=== PATIENT | female | born 1955 | race Two or more races ===

== ENCOUNTER 2016-12-28 08:38 | Inpatient (IN) | payer OTHER ==
--- NOTE | 2016-12-28 07:56 | HP ---
Admitting History and Physical - Admission Chief Complaint: right knee osteoarthritis x years History of Present Illness: 61 year old female presents in regard to her right knee. Longstanding history of right knee osteoarthritis. Patient complains of pain, limited ROM, difficulty ambulating and difficulty with ADLs. Patient has failed conservative treatment including PO medication, activity modification, injections and exercise program. Patient would like to proceed with a right total knee arthroplasty. History Source: Patient - Past Medical History ...: No ENT: Yes: Other - Past Surgical History Additional Past Surgical History: See written H&P - Smoking History Smoking history: Never smoked Have you smoked in the past 12 months: No - Alcohol/Substance Use Hx Alcohol Use: Yes (RARELY) Home Medications - Allergies Allergies/Adverse Reactions: Allergies Allergy/AdvReac Type Severity Reaction Status Date / Time No Known Drug Allergies Allergy Verified 12/16/16 12:24 - Home Medications Home Medications: Ambulatory Orders Bimatoprost [Lumigan] 1 drop OU HS 12/16/16 Multivitamin/Iron/Folic Acid [Centrum Adults Tablet] 1 each PO DAILY 12/16/16 Naproxen Sodium [Aleve] 220 mg PO BID 12/16/16 Timolol [Betimol] 1 drop OU DAILY 12/16/16 Tramadol HCl [Ultram] 50 mg PO BID PRN 12/16/16 Review of Systems - Review of Systems Musculoskeletal: reports: Crepitus (Right knee), Decreased ROM (Right knee), Joint Pain (Right knee), Joint Swelling (Right knee) Physical Examination Constitutional: Yes: Well Nourished, No Distress Eyes: Yes: Conjunctiva Clear HENT: Yes: Atraumatic, Normocephalic Neck: Yes: Supple Cardiovascular: Yes: Regular Rate and Rhythm Respiratory: Yes: Regular Gastrointestinal: Yes: Soft ...Rectal Exam: Yes: Deferred Musculoskeletal: Yes: Joint Stiffness (Right knee), Joint Swelling (Right knee) Assessment/Plan 61 year old female with longstanding right knee osteoarthritis. Patient continues to complain of pain, limited ROM, difficulty ambulating and difficulty with ADLs. Patient has failed all conservative treatment measures. Proceed with right total knee arthroplasty.
[2016-12-28] MEDS ORDERED: TRANEXAMIC ACID 1000 MG/10 ML VIAL IVPUSH ONE (08:51)
[2016-12-28] MEDS ORDERED: CEFAZOLIN 2 GM in DEXTROSE 5%-WATER - 50 ML IVPB ONE (08:51)
[2016-12-28] MEDS ORDERED: ROPIVICAINE 0.2%/MORPH PF/KETOROLAC - 51ML DISP.SYRINGE IA ONE (08:51)
[2016-12-28] MEDS ORDERED: ceFAZolin SODIUM 1 GM VIAL ONE ×2 (09:28→11:21)
[2016-12-28] MEDS ORDERED: VANCOMYCIN 1,000 MG VIAL (RESTRICTED TO ID ONLY) ONE (09:28)
[2016-12-28] MEDS: CELECOXIB 200 MG CAPSULE PO ONE ×2 (09:40→16:40)
[2016-12-28] MEDS: PANTOPRAZOLE 40 MG TABLET (FP) PO ONE ×2 (09:40→16:40)
[2016-12-28] MEDS: GABAPENTIN 300 MG CAPSULE (FP) PO ONE ×2 (09:40→16:41)
[2016-12-28] MEDS: oxyCODONE HCL 10 MG SUSTAINED ACTING TABLET PO ONE ×2 (09:40→16:41)
[2016-12-28 10:02] VITALS: BMI 37.1
[2016-12-28] MEDS ORDERED: DEXAMETHASONE SOD PHOSPHATE/PF 10 MG/ML SDV ONE (10:04)
[2016-12-28] MEDS ORDERED: MIDAZOLAM HCL 2 MG/2 ML SINGLE DOSE VIAL ONE (10:05)
[2016-12-28] MEDS ORDERED: SODIUM CHLORIDE 0.9% P/F 10 ML VIAL IJ ONE (10:05)
[2016-12-28] MEDS ORDERED: ROPIVACAINE HCL 0.5% 30ML VIAL ONE (10:05)
[2016-12-28] MEDS ORDERED: PROPOFOL 20 ML ONE ×3 (10:48)
[2016-12-28] MEDS ORDERED: BUPIVACAINE HCL/PF 0.5% (5MG/ML) 10 ML VIAL ONE (10:49)
[2016-12-28] MEDS ORDERED: DEXAMETHASONE SOD PHOSPHATE 4 MG/1 ML VIAL ONE (11:21)
[2016-12-28] MEDS ORDERED: TRANEXAMIC ACID 1000 MG/10 ML VIAL ONE (11:21)
[2016-12-28] MEDS ORDERED: ONDANSETRON 4 MG/2 ML VIAL ONE (11:21)
[2016-12-28] MEDS ORDERED: ePHEDrine SULFATE 50 MG/1 ML AMPULE ONE (11:34)
[2016-12-28] MEDS ORDERED: oxyCODONE HCL 5 MG TABLET PO PRN (12:30)
[2016-12-28] MEDS ORDERED: METOCLOPRAMIDE HCL INJECTION 10 MG/2 ML VIAL IVPB PRN (12:32)
[2016-12-28] MEDS ORDERED: KETOROLAC TROMETHAMINE 30 MG/1 ML VIAL ONE (14:19)
[2016-12-28] MEDS ORDERED: traMADol HCL 50 MG TABLET ONE (14:19)
[2016-12-28] MEDS: ACETAMINOPHEN 1000 MG/100 ML VIAL (NON FORMULARY) IVPB ONE ×2 (14:30→16:42)
[2016-12-28] MEDS ORDERED: MAG HYDROX/AL HYDROX/SIMETH 30 ML UNIT-DOSE CUP PO PRN (14:59)
[2016-12-28] MEDS ORDERED: MAGNESIUM HYDROX 2400MG/30ML ORAL SUSPENSION 30 ML CUP PO PRN (14:59)
[2016-12-28] MEDS ORDERED: ONDANSETRON 4 MG/2 ML VIAL IVPB PRN (14:59)
[2016-12-28] MEDS ORDERED: LACTATED RINGERS SOLUTION 1,000 ML IV SCH (15:00)
[2016-12-28] MEDS ORDERED: ACETAMINOPHEN 1000 MG/100 ML VIAL (NON FORMULARY) IVPB ONE (15:03)
[2016-12-28] MEDS: KETOROLAC TROMETHAMINE 30 MG/1 ML VIAL IVPUSH SCH ×3 (15:10→21:55)
[2016-12-28] MEDS: traMADol HCL 50 MG TABLET PO SCH ×3 (15:20→21:52)
[2016-12-28] MEDS: LACTATED RINGERS SOLUTION 1,000 ML IV SCH (16:42)
[2016-12-28] MEDS: CEFAZOLIN 2 GM/D5W 50 ML IVPB SCH (17:36)
[2016-12-28] MEDS ORDERED: PT OWN MED DRAWER 7, Y5N ONE (21:30)
[2016-12-28] MEDS: ACETAMINOPHEN 325 MG TABLET (FP) PO SCH (21:50)
[2016-12-28] MEDS: CELECOXIB 200 MG CAPSULE PO SCH (21:50)
[2016-12-28] MEDS: GABAPENTIN 300 MG CAPSULE (FP) PO SCH ×2 (21:50→21:53)
[2016-12-28] MEDS: ASCORBIC ACID 500 MG TABLET (FP) PO SCH (21:51)
[2016-12-28] MEDS: oxyCODONE HCL 5 MG TABLET PO PRN (21:51)
[2016-12-28] MEDS: SENNOSIDES/DOCUSATE COMBO (SENNA PLUS) TABLET (UD) PO SCH (21:52)
[2016-12-28] MEDS: LATANOPROST 0.005% OPHTH SOLN 2.5ML BOTTLE OU SCH (21:53)
[2016-12-28] MEDS ORDERED: PATIENT'S OWN MEDICATION (NON-FORMULARY) (Bimatoprost [Lumigan] 1 DROP) OU SCH (22:00)
[2016-12-29] MEDS: CEFAZOLIN 2 GM/D5W 50 ML IVPB SCH (01:38)
[2016-12-29] MEDS: KETOROLAC TROMETHAMINE 30 MG/1 ML VIAL IVPUSH SCH ×2 (03:44→08:10)
[2016-12-29] MEDS: oxyCODONE HCL 5 MG TABLET PO PRN ×3 (03:45→21:20)
[2016-12-29] MEDS: ACETAMINOPHEN 325 MG TABLET (FP) PO SCH ×4 (03:45→21:16)
[2016-12-29] MEDS: traMADol HCL 50 MG TABLET PO SCH ×4 (03:46→21:17)
[2016-12-29] MEDS: ASPIRIN 325 MG TABLET PO SCH (08:10)
[2016-12-29 08:14] LABS: MCH 20.2 pg (25.7-33.7); MCHC 31.3 g/dl (32.0-36.0); MEAN CELL VOLUME 64.5 fl (80-96); MEAN PLT VOLUME 8.2 fl (7.5-11.1); PLATELET COUNT 226 K/MM3 (134-434); RDW 14.5 % (11.6-15.6); WHITE BLOOD COUNT 9.5 K/mm3 (4.0-10.8)
[2016-12-29 08:18] LABS: HYPOCHROMIA 1+; MICROCYTOSIS 2+; PLATELET ESTIMATE ADEQUATE (NORMAL)
[2016-12-29 08:34] LABS: ANION GAP 7 (8-16); CALCIUM 8.8 mg/dl (8.4-10.2); CO2 27 mmol/L (22-28); CREATININE 0.5 mg/dl (0.6-1.3); GLUCOSE,RANDOM 147 mg/dl (74-106)
[2016-12-29] MEDS: MULTIVITAMINS (DAILY MVI) TABLET (FP) PO SCH (09:19)
[2016-12-29] MEDS: GABAPENTIN 300 MG CAPSULE (FP) PO SCH ×4 (09:19→21:18)
[2016-12-29] MEDS: PANTOPRAZOLE 40 MG TABLET (FP) PO SCH (09:19)
[2016-12-29] MEDS: CELECOXIB 200 MG CAPSULE PO SCH ×2 (09:19→21:16)
[2016-12-29] MEDS: ASCORBIC ACID 500 MG TABLET (FP) PO SCH ×2 (09:19→21:17)
[2016-12-29] MEDS: SENNOSIDES/DOCUSATE COMBO (SENNA PLUS) TABLET (UD) PO SCH ×2 (09:20→21:18)
[2016-12-29] MEDS ORDERED: PATIENT'S OWN MEDICATION (NON-FORMULARY) (Timolol [Betimol] 1 DROP) OU SCH (10:00)
--- NOTE | 2016-12-29 10:15 | SPEC ---
DATE OF OPERATION: 12/28/2016 PREOPERATIVE DIAGNOSIS: Right knee osteoarthritis. POSTOPERATIVE DIAGNOSIS: Right knee osteoarthritis. PROCEDURE: Right total knee replacement. ATTENDING: Prince Prakash MD DISABILITY COUNSELOR: SHELBY Tan ANESTHESIA: Spinal plus sedation. ESTIMATED BLOOD LOSS: 150 mL. COMPLICATIONS: None. SPECIMENS: Resected bone was sent for pathology analysis. DISPOSITION: The patient was transferred to the PACU in stable condition. IMPLANTS USED: [place] Triathlon size 4 femoral component, Liv Triathlon size 3 tibial component, 11-mm total stabilized polyethylene component, 29-mm patellar component. INDICATIONS: This is a 61-year-old female who presented to the office complaining of severe right knee pain. She was seen and examined by Dr. Prakash and diagnosed with severe right knee osteoarthritis. Her x-rays showed Kellgren and Danial grade 4 [id number] medial compartment osteoarthritis. She did have tricompartmental arthritic changes and had tried multiple nonoperative modalities including medications, injections, and physical therapy without relief. She was subsequently indicated for right total knee replacement. The risks, benefits, and alternatives to the procedure were explained to the patient in great detail, and she elected to proceed with the surgery. DESCRIPTION OF PROCEDURE: On the day of surgery, the patient was taken to the OR and placed supine on the OR table. Spinal anesthesia was administered by the anesthesiologist. The patient was then positioned supine on the table and all bony prominences were padded. A nonsterile tourniquet was placed on the proximal thigh. The knee was then prepped and draped in the usual sterile fashion and intravenous antibiotics were given for infection prophylaxis. A surgical time-out was then performed with the team, and the patients identity, procedure, side, availability of implants, and the administration of antibiotics was confirmed. The leg was then elevated and exsanguinated, and the tourniquet was inflated. With the knee flexed, a midline incision was made and carried down through the subcutaneous fat to the underlying retinaculum. A medial parapatellar arthrotomy was performed. This was followed by a subperiosteal dissection of the tissue off the proximal, medial tibia. A portion of fat pad was removed from under the patellar tendon, and a small portion of fat was excised off the distal supracondylar femur. The knee was then flexed further and the anterior horn of the lateral meniscus was released from the midline. Next, the anterior and posterior cruciate ligaments were transected. Osteophytes were removed from both the femur and tibia. Grade 4 changes were noted diffusely throughout the knee. Hohmann retractors were then placed around the distal femur. The starting drill was used to enter the intramedullary canal. The starting point had been chosen by checking the radiographs and anatomy. Proper alignment and intramedullary placement was then confirmed by placing the long narrow eloise into the femur. Next, the distal femoral cutting guide was adjusted to 6 degrees of valgus and pinned to the femur. The bone resection was assessed using an carmen-wing. An approximately 10mm distal cut was made and the cut pieces measured. Once this was complete, the sizing guide was used to determine which size femoral component should be used. Next, the appropriately sized 4-in-1 cutting block was then placed at the correct amount of external rotation and the carmen wing was used to assure that there would be no notching of the anterior cortex of the femur. Once this was done, Hohmann retractors were used to protect the medial and lateral collateral ligaments, and all appropriate bone cuts were made. Attention was then turned to the tibia. Hohmann retractors were used to translate the tibia anteriorly and protect the collateral ligaments. The medial and lateral menisci were removed. The extramedullary tibial alignment guide was then placed and adjusted for rotation, varus/valgus, and slope. The height of the cutting block was adjusted to the level of the desired bone resection and then pinned in place. The proximal tibia was then cut with a saw and the bone was removed and measured. Once this was completed, trial components were placed and the knee was taken through a full range of motion. Soft tissue balance was assessed in both flexion and extension and found to be appropriate. The knee was stable throughout the full range of motion. The knee was then put into extension and the patella everted. The synovium around the patella was circumscribed with electrocautery. A caliper was used to measure the patellar thickness and a saw was then used to resect the patella at the chondro-osseous junction. The cut surface was then sized and drilled for the appropriate patellar button, with care taken to medialize it. A trial patella was then placed and the knee was again taken through a full range of motion. The knee was found to have both good balance and good patellar tracking. All of the components were removed except the tibial base plate. The appropriate instrumentation was used to drill and punch the proximal tibia for the keel of the final component. All bony surfaces were then cleaned with pulsatile lavage and dried. Bone cement was then prepared on the back table, and final components were cemented in place in the usual fashion. Extruded cement was removed. The polyethylene trial was placed, the knee was put into extension, and axial pressure was applied for compression while the cement hardened. The patellar button was similarly cemented into place. Once the cement had hardened, the knee was taken through a full range of motion to assess stability, balance, and patellar tracking. This was found to be optimal and the trial polyethylene was exchanged for the appropriately sized real implant. The wound was then thoroughly irrigated with normal saline. No. 1 Polysorb and 0 VLoc 180 barbed sutures were used to close the arthrotomy. No. 1 Polysorb and 2-0 Polysorb sutures were used in the subcutaneous tissues. The skin was closed using both 3-0 VLoc 90 suture in a running subcuticular fashion and SwiftSet skin adhesive. Once this was completed a sterile Aquacel dressing and compressive Dano-wrap was applied. The tourniquet was then deflated and the patient was awakened and taken to the PACU in stable condition. ADDENDUM: After final components were placed, a 3-minute dilute Betadine lavage was performed according to the [facility] protocol. Following this, the wound was again thoroughly irrigated with normal saline via pulsatile lavage, and then, wound closure was begun. Lor [id number]
[2016-12-29] MEDS: LACTATED RINGERS SOLUTION 1,000 ML IV SCH (14:35)
[2016-12-29] MEDS ORDERED: PT OWN MED DRAWER 7, Y5N ONE (21:06)
[2016-12-29] MEDS: LATANOPROST 0.005% OPHTH SOLN 2.5ML BOTTLE OU SCH (21:18)
[2016-12-30] MEDS: oxyCODONE HCL 5 MG TABLET PO PRN (04:13)
[2016-12-30] MEDS: traMADol HCL 50 MG TABLET PO SCH ×2 (04:13→10:16)
[2016-12-30] MEDS: ACETAMINOPHEN 325 MG TABLET (FP) PO SCH ×2 (04:13→09:35)
[2016-12-30 08:13] LABS: MCHC 30.6 g/dl (32.0-36.0); MEAN CELL VOLUME 64.5 fl (80-96); MEAN PLT VOLUME 8.2 fl (7.5-11.1); PLATELET COUNT 225 K/MM3 (134-434); RDW 14.3 % (11.6-15.6); WHITE BLOOD COUNT 7.9 K/mm3 (4.0-10.8)
--- NOTE | 2016-12-30 08:13 | PN ---
Progress Note (short form) - Note Progress Note: Pt seen and examined yesterday evening. Doing well. AVSS Selected Entries 12/29/16 12/30/16 22:00 05:45 Temperature 97.6 F 98.7 F Pulse Rate 68 65 Respiratory 18 20 Rate Blood Pressure 113/58 105/63 O2 Sat by Pulse 98 100 Oximetry (%) Oxygen Delivery Room Air Room Air Method Laboratory Tests 12/29/16 12/29/16 07:35 07:35 WBC 9.5 Hgb 9.4 L Hct 30.0 L Plt Count 226 Sodium 136 Potassium 4.5 Chloride 102 Carbon Dioxide 27 Anion Gap 7 L BUN 13 Creatinine 0.5 L Random Glucose 147 H Calcium 8.8 Gen: NAD RLE: c/d/i, NVID A/P s/p R TKA 1. PT/OOB 2. D/C home today - f/u in office in 10-14 days
--- NOTE | 2016-12-30 08:14 | DS ---
Physical Examination Vital Signs: Vital Signs Temperature 98.7 F 12/30/16 05:45 Pulse Rate 65 12/30/16 05:45 Respiratory Rate 20 12/30/16 05:45 Blood Pressure 105/63 12/30/16 05:45 O2 Sat by Pulse Oximetry (%) 100 12/30/16 05:45 Discharge Summary Reason For Visit: OSTEOARTHRITIS RIGHT KNEE Current Active Problems Osteoarthritis of right knee (Acute) Procedures: Principal: right TKA Hospital Course: Admitted for elective surgery. Procedure performed without complications. Pt received postoperative antibiotic prophylaxis and DVT ppx. Ambulated with physical therapy. Stable for discharge home with outpatient followup. Condition: Stable - Instructions Diet, Activity, Other Instructions: Dr. Prakash - Knee Replacement Instructions Keep the Aquacel dressing on until removed by Dr. Prakash in 10-14 days - it is antibacterial and waterproof and you can shower with it on. Call the office for a follow-up appointment with Dr. Prakash in 10-14 days. Take one Aspirin 325mg daily for 6 weeks to prevent blood clots in your legs. Take one Pantoprazole 40mg daily for 6 weeks to protect against heartburn and ulcers. Take Celebrex 200mg twice daily for 30 days to reduce swelling and inflammation. Take a multivitamin, extra vitamin C supplement, and stool softener daily. For pain: *Mild pain (1-3/10): Take 1 Tramadol tablet every 4 hours as needed. Moderate pain (4-6/10): Take 1 Tramadol tablet and 1 Percocet tablet every 4 hours as needed. Severe pain (7-10/10): Take 1 Tramadol tablet and 2 Percocet tablets every 4 hours as needed. Activity: You can put as much weight on the operative leg as you want. Right after you get home, there will be a physical therapist coming to your house to help you walk around and bend/straighten your knee. After your follow-up appointment, you will be sent for more intensive outpatient physical therapy which will include machines and equipment that the home therapist cannot bring to your house. Always use a walker or cane for balance and to prevent falls. Disposition: VNS/HOME HEALTH CARE - Home Medications Comprehensive Discharge Medication List: Ambulatory Orders Bimatoprost [Lumigan] 1 drop OU HS 12/16/16 Multivitamin/Iron/Folic Acid [Centrum Adults Tablet] 1 each PO DAILY 12/16/16 Timolol [Betimol] 1 drop OU DAILY 12/16/16 Ascorbic Acid [Vitamin C -] 500 mg PO BID tablet 12/30/16 Aspirin [ASA -] 325 mg PO DAILY@0800 tablet 12/30/16 Celecoxib [CeleBREX -] 200 mg PO BID #60 tab 12/30/16 Multivitamins [Multivit ([facility])] 1 tab PO DAILY tab 12/30/16 Oxycodone HCl/Acetaminophen [Percocet 5-325 mg Tablet] 1 - 2 tab PO Q4H PRN #60 tablet MDD 8 12/30/16 Pantoprazole Sodium [Protonix -] 40 mg PO DAILY #40 tab 12/30/16 Sennosides/Docusate Sodium [Pericolace -] 2 tablet PO BID tablet 12/30/16 Tramadol HCl [Ultram -] 50 mg PO Q4H PRN #90 tablet MDD 6 12/30/16
[2016-12-30 08:18] LABS: MCH 19.8 pg (25.7-33.7)
[2016-12-30 08:29] LABS: ANION GAP 3 (8-16); CALCIUM 8.2 mg/dl (8.4-10.2); CO2 31 mmol/L (22-28); CREATININE 0.6 mg/dl (0.6-1.3); GLUCOSE,RANDOM 108 mg/dl (74-106)
[2016-12-30] MEDS: ASPIRIN 325 MG TABLET PO SCH (08:30)
[2016-12-30] MEDS ORDERED: PT OWN MED DRAWER 7, Y5N ONE (10:13)
[2016-12-30] MEDS: CELECOXIB 200 MG CAPSULE PO SCH (10:17)
[2016-12-30] MEDS: GABAPENTIN 300 MG CAPSULE (FP) PO SCH ×2 (10:17)
[2016-12-30] MEDS: PANTOPRAZOLE 40 MG TABLET (FP) PO SCH (10:17)
[2016-12-30] MEDS: ASCORBIC ACID 500 MG TABLET (FP) PO SCH (10:17)
[2016-12-30] MEDS: MULTIVITAMINS (DAILY MVI) TABLET (FP) PO SCH (10:18)
[2016-12-30] MEDS: SENNOSIDES/DOCUSATE COMBO (SENNA PLUS) TABLET (UD) PO SCH (10:18)
[2016-12-30 12:55] VITALS: BP 111/69; PULSE 71; TEMP 97.6
--- NOTE | 2016-12-30 15:48 | PATH ---
Surgical Pathology Report Patient Name: MELANIE BAILEY Med. Rec. #: [id number] /Age/Gender: 1955 (Age: 61) / F Account: [id number] Location: [facility] MED-SURG Taken: 12/28/2016 Received: 12/28/2016 Reported: 12/30/2016 Physicians: Prince Prakash M.D. Specimen(s) Received BONE RIGHT KNEE Clinical History Right knee osteoarthritis Final Diagnosis BONE, RIGHT KNEE, TOTAL KNEE REPLACEMENT: DEGENERATIVE JOINT DISEASE. Electronically Signed Nadege Jules M.D. Gross Description Received in formalin labeled "bone right knee," is a 10.5 x 9.5 x 1.7 cm aggregate of multiple swan, irregular portions of bone and soft tissue. The tibial plateau measures 7.4 x 5.0 x 1.5 cm. There are multiple areas of eburnation present, measuring up to 3.0 cm in greatest dimension. The remaining articular surfaces are swan-yellow and diffusely granular. The underlying trabecular bone is yellow and hard. Clinical Research Physician sections are submitted in one cassette, following decalcification. 12/29/2016 [facility]12/29/2016
== END 2016-12-30 16:00 | disposition home health service (06) | DRG 470 ==
LOC: FM/S 08:38
PROVIDERS: ADMIT Student in an Organized Health Care Education/Training Program; ATTEND Student in an Organized Health Care Education/Training Program
PROC: 0SRC0J9 Replacement of Right Knee Joint with Synthetic Substitute, Cemented, Open Approach (ICD-10-PCS; principal; 2016-12-28 11:53)
DX: M17.11 Unilateral primary osteoarthritis, right knee (principal); E66.8 Other obesity; Z68.37 Body mass index [BMI] 37.0-37.9, adult
CPT/HCPCS: 36415; 73560-TC-RT; 80048; 85027; 88304-TC; 88311-TC; 94010; 94760; 97116-GP; 97162-GP